=== PATIENT | male | born 1970 | race Caucasian/White ===

== ENCOUNTER 2016-12-03 18:25 | Emergency (ER) | payer OTHER ==
[~2016-12-03] VITALS: Ht 180.3 cm; Wt 181.8 kg
[2016-12-03 18:27] VITALS: BP 154/86; PULSE 79; RESP 20; O2SAT 95
--- NOTE | 2016-12-03 18:34 | ED.REPORT ---
HPI-Dyspnea / Wheezing Date of Service Dec 03, 2016 ED Provider: Dr. Awad 46 y/o male with a hx of CHF and HTN presents to the ED complaining of SOB, onset 3 weeks ago. Associated sx include mild cough, abdomen distention and mild diarrhea. He denies fever and chest pain. His sx are exacerbated with laying on his back and relieved by standing up. He states "It feels like my lung is not inflating". The pt was admitted to hospital in [facility] 3 weeks ago for left cornejo cellulitis and was prescribed Vancomycin. He has been experiencing these sx since. Nursing Notes Stated Complaint: DIFFICULTY BREATHING Chief Complaint: Respiratory Distress Nursing Notes Reviewed: Yes Allergies: Coded Allergies: No Known Allergies (Unverified , 12/03/16) Scheduled Levofloxacin (Levaquin) 750 Mg Tablet 750 MG PO DAILY General Time Seen by MD: 18:33 Chief Complaint Shortness of breath Hx Obtained From: Patient Arrived By: Walk-in Sudden in Onset?: Yes Onset Occurred: More than a week ago... (3 weeks) Symptom Duration: Since onset Severity: Current: Mild (abdomen) Severity: Maximum: Mild Recent Healthcare: Recent doctor visit, Recent hospitalization Similar Sx Previous: No Past Medical History Past Medical History Cellulitis of left leg Reports: Congestive heart failure, Hypertension Past Surgical History none reported Smoking History Unknown if Ever Smoker Ambulatory Status Independent Review of Systems Reports: Distended Abdomen Constitutional: Denies: Fever Respiratory: Reports: Non-productive cough (mild), Shortness of breath Cardiovascular: Denies: Chest pain Complete sys rev & neg: except as marked. GI: Reports: Diarrhea (mild) Physical Exam Initial Vital Signs Vital Signs (First) Date Time Temp Pulse Resp B/P Pulse Ox O2 Delivery O2 Flow Rate FiO2 12/03/16 18:27 36.3 79 20 154/86 95 Room Air Initial VS: Reviewed Head / Eyes: Atraumatic, Normocephalic Extremities: Vascular intact, Neuro intact, No swelling, No tenderness Skin: Warm, Dry, No cyanosis Neurologic: Alert, Oriented, Nonfocal General/Constitutional: Awake, Alert, Cooperative Appearance / Presentation: Positive: Obese, morbidly Respiratory / Chest: Atraumatic, Breath sounds NL, Breath sounds = bilat, No respiratory distress, No rales, No rhonchi, No wheezing Cardiovascular: Heart rate NL, Regular rhythm, Heart sounds NL, No gallop, No murmurs, No rubs Trace lower extremity edema symmetric bilaterally. Abdomen: Atraumatic, Soft, No guarding, No rebound Tenderness/Guarding/Rebound: Positive: Tender diffuse (Mild) Interpretation & Diagnostics PROCEDURE: CT ANGIO CHEST PULMONARY EMBOLISM ([id number]) IMPRESSION: 1. Suboptimal opacification of central pulmonary arteries. No definitive central pulmonary emboli. 2. Left basilar consolidation or atelectasis. Dictated by: Flakito Gallardo M.D. on 12/03/2016 at 20:18 Approved by: Flakito Gallardo M.D. on 12/03/2016 at 20:21 Lab Results Interpretation Result Diagram: 12/03/16 1840 12/03/16 1840 Test 12/03/16 18:40 White Blood Count 9.1th/mm3 (3.8-10.1) Red Blood Count 5.17mil/mm3 (4.40-5.80) Hemoglobin 14.2g/dL (13.8-17.2) Hematocrit 45.2% (41.0-50.0) Mean Corpuscular Volume 87.4fL (81-100) Mean Corpuscular Hemoglobin 27.5pg (27.0-35.0) Mean Corpuscular Hemoglobin Concent 31.4% (32.0-37.0) Red Cell Distribution Width 15.2% (12.3-15.4) Platelet Count 242bil/L (150-400) Neutrophils (%) (Auto) 67.6% (40-74) Lymphocytes (%) (Auto) 21.3% (14-46) Monocytes (%) (Auto) 6.1% (4-12) Eosinophils (%) (Auto) 4.4% (0-5) Basophils (%) (Auto) 0.2% (0-3) D-Dimer 0.72mg/L FEU (<0.50) Sodium Level 139mEq/L (134-144) Potassium Level 4.2mEq/L (3.5-5.2) Chloride Level 101mEq/L (97-108) Carbon Dioxide Level 24mmol/L (18-29) Blood Urea Nitrogen 15mg/dL (6-24) Creatinine 0.52mg/dL (0.76-1.27) Estimat Glomerular Filtration Rate 180mL/min (>59) Glucose Level 102mg/dL (60-99) Calcium Level 9.3mg/dL (8.5-10.1) Total Bilirubin 0.4mg/dL (0.0-1.2) Aspartate Amino Transf (AST/SGOT) 19U/L (0-50) Alanine Aminotransferase (ALT/SGPT) 23U/L (0-44) Alkaline Phosphatase 97U/L (25-150) Troponin T < 0.010ug/L (0.0-0.011) Pro-B-Type Natriuretic Peptide 8.92pg/mL (0-121) Total Protein 8.3g/dL (6.4-8.4) Albumin 4.0g/dL (3.4-5.0) Hold Mayen Top Tube Received (Received) ECG Interpretation ECG Interpretation: Normal sinus rhtyhm. rate 77. Nonspecific intraventricular conduction delay. Time: 18:46 Interpreted by: ED physician X-Ray Chest Interpretation Chest Xray Interpretation: IMPRESSION: Left lower lobe pneumonia. Dictated by: Flakito Gallardo M.D. on 12/03/2016 at 19:32 Approved by: Flakito Gallardo M.D. on 12/03/2016 at 19:33 View: Portable, AP & lat Interpretation / Wet Read by: Interpret - Radiologist CT Abd / Pelvis Interpretation IMPRESSION: 1. Cholelithiasis. No CT finding to suggest acute cholecystitis. 2. Probably small left renal cyst. 3. Left basilar consolidation and/or atelectasis. Recommend cortical correlation for left lower lobe pneumonia. Dictated by: Flakito Gallardo M.D. on 12/03/2016 at 20:30 Approved by: Flakito Gallardo M.D. on 12/03/2016 at 20:34 Study type: Abdominal CT IV contrast Interpretation / Wet Read by: Interpret - Radiologist Re-Eval/Medical Decision Med Decision/Clinical Course Patient presents with a cough and several weeks of shortness of breath, hemodynamically he is stable. His labs are reassuring. This is not likely to represent acute coronary syndrome or congestive heart failure, his d-dimer is minimally elevated his CT was limited but does not show any obvious pulmonary embolism. He does however have evidence of a left lower lobe pneumonia. He has previously been on Augmentin. We will start Levaquin. Discussed the risk of tendinopathy and tendon rupture. Return and follow-up precautions given. Re-Evaluation/Progress : Time of Eval: 20:45 Re-Evaluation/Progress Note: Rechecked pt. Discussed the findings of pneumonia. The pt was recently on Augment so he will be prescribed Levaquin. Discussed the possibility of tendinopathy and tendon rupture. Discussed plan to discharge. Pt understands and agrees with plan. F/U instructions and RTER warning given. All questions addressed Counseled Regarding: Diagnosis, Lab results, Need for follow-up, When/why to return to ED Discharge & Departure Impression: Primary Impression: Pneumonia Laterality: left Lung location: lower lobe of lung Disposition: Home Discharge Condition All VS Reviewed: Yes Condition: Stable Patient Instructions: Pneumonia (ED) Referrals: Tonny Ann MD Attestation Portions of this note were transcribed by Amy Saul. I, , personally performed the history, physical exam and medical decision-making;I reviewed and confirmed the accuracy of the information in the transcribed note. Signed by Bettye Roman. 12/03/16 20:52 copies to: Tonny Ann MD, Timothy S DO Dec 03, 2016 18:34 Amy Saul Dec 03, 2016 18:55
[2016-12-03 18:50] VITALS: BP 153/94; PULSE 81; RESP 24; O2SAT 94
[2016-12-03 18:56] LABS: BASOPHILS % (AUTO) 0.2 % (0-3); EOSINOPHILS % (AUTO) 4.4 % (0-5); MONOCYTES % (AUTO) 6.1 % (4-12); Mean Corpuscular Hemoglobin 27.5 pg (27.0-35.0); Mean Corpuscular Volume 87.4 fL (81-100); NEUTROPHILS % (AUTO) 67.6 % (40-74); Platelet Count 242 bil/L (150-400)
[2016-12-03 19:17] LABS: TROPONIN T < 0.010 ug/L (0.0-0.011)
--- NOTE | 2016-12-03 19:34 | DRSVH ---
PROCEDURE: X-RAY CHEST, TWO VIEWS ([id number]) INDICATIONS: dyspnea TECHNIQUE: 2 views of the chest were acquired. COMPARISON: [facility], CR, XR CHEST 2V AP/PA AND LAT, 09/20/2016, 11:00 AM. FINDINGS: Surgical changes and devices: None. Lungs and pleura: There is left hemidiaphragm elevation. Left basilar infiltrate is present suspicio us for pneumonia. No pneumothorax. Mediastinum: Mediastinal contours are normal. Heart size is normal. Bones and chest wall: No suspicious bony abnormalities. Soft tissues appear unremarkable. IMPRESSION: Left lower lobe pneumonia. Dictated by: Flakito Gallardo M.D. on 12/03/2016 at 19:32 Approved by: Flakito Gallardo M.D. on 12/03/2016 at 19:33
--- NOTE | 2016-12-03 20:23 | DRSVH ---
PROCEDURE: CT ANGIO CHEST PULMONARY EMBOLISM ([id number]) INDICATIONS: exertional dyspnea, recent hopsitalization, +ddime TECHNIQUE: After the administration of intravenous contrast, 2 mm thick sections acquired from the pulmonary api han to the posterior costophrenic angles. 3-dimensional maximum intensity projection (MIP) coronal a nd sagittal reformats were then acquired through the thorax. For radiation dose reduction, the follo wing was used: automated exposure control, adjustment of mA and/or kV according to patient size. COMPARISON: None. FINDINGS: Image quality: Suboptimal opacification of the central pulmonary arteries. Pulmonary arteries: Pulmonary arteries are normal in size, and demonstrate no intraluminal filling d efects to suggest central pulmonary embolism. Lungs and pleura: There is left basilar consolidation or atelectasis.. No pleural effusions or pneum othorax. Central and peripheral airways are patent. Mediastinum: Heart size is normal, without pericardial effusion. No mediastinal or hilar adenopathy . Thoracic aorta is normal in caliber and enhancement. Esophagus is normal in caliber, without hiat al hernia. Bones and chest wall: No suspicious bony lesions. Ribs and thoracic spine appear intact throughout. Thyroid gland is normal. No axillary or supraclavicular adenopathy. Abdomen: Visualized upper abdominal solid organs appear normal in the early arterial phase of enhanc ement. IMPRESSION: 1. Suboptimal opacification of central pulmonary arteries. No definitive central pulmonary emboli. 2. Left basilar consolidation or atelectasis. Dictated by: Flakito Gallardo M.D. on 12/03/2016 at 20:18 Approved by: Flakito Gallardo M.D. on 12/03/2016 at 20:21
--- NOTE | 2016-12-03 20:35 | DRSVH ---
PROCEDURE: CT ABDOMEN AND PELVIS WITH CONTRAST ([id number]) INDICATIONS: diffuse abdominal pain. TECHNIQUE: After the administration of intravenous contrast, 5 mm thick sections acquired from the diaphragm to the symphysis. 5 mm coronal and sagittal reformats were acquired. For radiation dose reduction, the following was used: automated exposure control, adjustment of mA and/or kV according to patient siz e. COMPARISON: None. FINDINGS: Image quality: Excellent. ABDOMEN: Lung bases: There is left basilar consolidation and/or atelectasis.. Heart size is normal. Solid organs: Liver and spleen are normal in size and enhancement. Gallbladder is full of gallstone s. No color or thickening or pericholecystic fluid collection. Biliary system is non dilated. Pancr eas enhances normally. No adrenal nodules. A 1 cm low indeterminate density nodule in the superior pole of the left kidney is noted, most likely a cyst. Kidneys demonstrate normal size and enhancement , without hydronephrosis. Peritoneum and bowel: Bowel loops demonstrate normal wall thickness and caliber. No free fluid or a ir. Nodes and vessels: No retroperitoneal or mesenteric adenopathy by size criteria. Aorta and inferior vena cava are normal in size. Miscellaneous: There is a tiny fat-containing umbilical hernia. PELVIS: Genitourinary: Bladder wall thickness is normal. Miscellaneous: No inguinal hernias or adenopathy. Bones: No suspicious bony lesions. No vertebral body compression fractures. Degenerative changes ar e noted in lumbar spine. IMPRESSION: 1. Cholelithiasis. No CT finding to suggest acute cholecystitis. 2. Probably small left renal cyst. 3. Left basilar consolidation and/or atelectasis. Recommend cortical correlation for left lower lobe pneumonia. Dictated by: Flakito Gallardo M.D. on 12/03/2016 at 20:30 Approved by: Flakito Gallardo M.D. on 12/03/2016 at 20:34
[2016-12-03 20:36] VITALS: BP 133/71; PULSE 75; RESP 22; O2SAT 94
[2016-12-03] MEDS ORDERED: LEVO750T9 PO (20:49)
[2016-12-03] MEDS ORDERED: levoFLOXacin 750 mg Tablet PO ONE (20:50)
[2016-12-03 21:02] VITALS: BP 132/67; PULSE 78; RESP 19; O2SAT 93
== END 2016-12-03 21:03 | disposition home or self-care (01) ==
LOC: SED 18:25
DX: J18.9 Pneumonia, unspecified organism (principal); I50.9 Heart failure, unspecified; I10 Essential (primary) hypertension; Z86.19 Personal history of other infectious and parasitic diseases
CPT/HCPCS: 36415; 71020; 71275; 74177; 80053; 83880; 84484; 85025; 85378; 93005; 99285; Q9967